=== PATIENT | male | born 1965 | race Caucasian/White ===

== ENCOUNTER 2016-07-17 01:53 | Inpatient (IN) | payer OTHER ==
[~2016-07-17] VITALS: Ht 182.9 cm; Wt 99.7 kg
[2016-07-17] VITALS (17 sets, daily range): BP systolic 100–120; BP diastolic 49–82; PULSE 94–101; RESP 14–17; TEMP 98.1–99.3; O2SAT 94–100
[2016-07-17] MEDS ORDERED: IOHEXOL 350 MG/ML 10 ML VIAL (for RAD DIAG) IV ONE (02:09)
[2016-07-17 02:17] LABS: I-STAT POTASSIUM 5.1 MMOL/L (3.5-4.9)
[2016-07-17 02:19] LABS: AUTOMATED NEUTROPHIL # 3.7 TH/MM3 (1.8-7.7); BASOPHIL % 0.6 % (0.0-2.0); EOSINOPHIL # 0.2 TH/MM3 (0-0.4); EOSINOPHIL % 2.8 % (0.0-4.0); HEMO FLAGS DIFF FINAL; LYMPH % 46.2 % (9.0-44.0); LYMPHOCYTE # 3.6 TH/MM3 (1.0-4.8); MEAN CELL VOLUME 93.6 FL (80.0-100.0); MEAN CORPUSCULAR HEMOGLOBIN 31.5 PG (27.0-34.0); MEAN CORPUSCULAR HGB CONC 33.7 % (32.0-36.0); MONO % 3.1 % (0.0-8.0); NEUT % 47.3 % (16.0-70.0); PLATELET COUNT 336 TH/MM3 (150-450); RED BLOOD COUNT 3.74 MIL/MM3 (4.50-5.90); RED CELL DISTRIBUTION WIDTH 14.7 % (11.6-17.2); WHITE BLOOD COUNT 7.8 TH/MM3 (4.0-11.0)
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
[2016-07-17 02:34] LABS: APTT (PATIENT) 19.9 SEC (24.3-30.1); PROTHROMBIN TIME - PATIENT 10.8 SEC (9.8-11.6)
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
[2016-07-17] MEDS ORDERED: DIPHTH/TETANUS/ACEL PERTUSSIS (BOOSTER) 0.5 ML VIAL/PFS IM ONE (02:44)
[2016-07-17] MEDS ORDERED: ceFAZolin 2 GM PREMIX 50 ML IV STA (02:44)
[2016-07-17] MEDS ORDERED: SODIUM CHLOR 0.9% 1000 ML INJ 1,000 ML IV ONE (02:45)
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
[2016-07-17 03:35] LABS: BLOOD GAS BASE EXCESS -8.7 mmol/L (-2-2); BLOOD GAS CARBOXYHEMOGLOBIN 2.7 % (0-4); BLOOD GAS HCO3 18 mmol/L (22-26); BLOOD GAS METHEMOGLOBIN 1.3 % (0-2); BLOOD GAS O2 HGB SATURATION 96 % (90-100); BLOOD GAS OXYGEN CONTENT 16.2 Vol % (12.0-20.0); BLOOD GAS PCO2 46 mmHg (38-42); BLOOD GAS PO2 316 mmHg (61-120); BLOOD GAS TOTAL HGB 11.5 G/DL (12.0-16.0); CRITICAL VALUE YES; DRAW SITE ART LINE; FIO2 95 %; OXYGEN DEVICE OR ABG; STAT YES; TEMP CORR TO 98.6
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
[2016-07-17] MEDS: SODIUM CHLOR 0.9% 1000 ML INJ 1,000 ML IV SCH ×2 (04:16→15:42)
[2016-07-17] MEDS ORDERED: ONDANSETRON HCL 4 MG/2 ML VIAL IV PRN (04:30)
[2016-07-17] MEDS ORDERED: SODIUM CHLORIDE 0.9% FLUSH 5 ML FLUSH IVF PRN (04:30)
[2016-07-17] MEDS ORDERED: NALOXONE HCL 0.4 MG/ML AMP IV PRN (04:30)
[2016-07-17] MEDS ORDERED: fentaNYL CITRATE 250 MCG/5 ML AMP ONE (04:32)
[2016-07-17] MEDS: metroNIDAZOLE 500 MG INJ 100 ML IV SCH ×3 (05:00→21:20)
[2016-07-17] MEDS: fentaNYL DRIP 250 ML IV SCH ×3 (05:08→23:41)
[2016-07-17] MEDS: PROPOFOL 1000 MG/100 ML INJ 100 ML IV SCH ×7 (05:08→21:19)
[2016-07-17 05:19] LABS: BLOOD GAS BASE EXCESS -3.5 mmol/L (-2-2); BLOOD GAS CARBOXYHEMOGLOBIN 2.1 % (0-4); BLOOD GAS HCO3 22 mmol/L (22-26); BLOOD GAS METHEMOGLOBIN 1.1 % (0-2); BLOOD GAS O2 HGB SATURATION 93 % (90-100); BLOOD GAS OXYGEN CONTENT 15.4 Vol % (12.0-20.0); BLOOD GAS PCO2 50 mmHg (38-42); BLOOD GAS PO2 92 mmHg (61-120); BLOOD GAS TOTAL HGB 11.7 G/DL (12.0-16.0); TEMP CORR TO 98.6
[2016-07-17 05:22] LABS: DRAW SITE ART LINE; FIO2 60 %; OXYGEN DEVICE VENTILATOR; STAT NO; ULNAR PULSE PRESENT; VENT SETTINGS VAC12/500/60/PEEP5
[2016-07-17 05:25] LABS: CRITICAL VALUE YES
[2016-07-17 06:20] LABS: BACTERIA, URINE RARE /hpf; BLOOD, URINE MOD (NEG); COMMENT (UR) CATH-CULTURE IND; CULTURE IF INDICATED CATH CULTURE IND; GLUCOSE,URINE NEG (NEG); HYALINE CAST, URINE 2 /lpf (RARE); KETONE, URINE NEG (NEG); MUCUS URINE FEW /lpf (OCC); NITRITE,URINE NEG (NEG); PH, URINE 5.5 (5.0-8.5); URINE COLOR LIGHT-YELLOW (YELLW/STRAW)
[2016-07-17 06:26] LABS: AMPHETAMINE, URINE NEG (NEG); BARBITURATES, URINE NEG (NEG); COCAINE, URINE NEG (NEG)
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
[2016-07-17 09:17] LABS: HEMATOCRIT 32.9 % (39.0-51.0); MEAN CELL VOLUME 91.1 FL (80.0-100.0); MEAN CORPUSCULAR HEMOGLOBIN 30.5 PG (27.0-34.0); MEAN CORPUSCULAR HGB CONC 33.5 % (32.0-36.0); PLATELET COUNT 181 TH/MM3 (150-450); RED BLOOD COUNT 3.61 MIL/MM3 (4.50-5.90); REVIEW FLAG FINAL; WHITE BLOOD COUNT 12.8 TH/MM3 (4.0-11.0)
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
[2016-07-17] MEDS: PANTOPRAZOLE SODIUM 40 MG VIAL IV SCH (09:46)
[2016-07-17] MEDS: DOCUSATE SODIUM 50 MG/SENNA 8.6 MG TAB PO SCH ×2 (09:46→21:19)
[2016-07-17] MEDS: SODIUM CHLORIDE 0.9% FLUSH 5 ML FLUSH IVF SCH ×2 (09:47→21:20)
[2016-07-17 09:48] LABS: POTASSIUM 3.9 MEQ/L (3.5-5.1)
[2016-07-17 10:12] LABS: CALCIUM-PROTEIN CORRECTED 7.7 MG/DL (8.5-10.1)
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
[2016-07-17] MEDS ORDERED: PROPOFOL 200 MG/20 ML AMP IV ONE (14:47)
[2016-07-17] MEDS ORDERED: NORMOSOL R INJ 1,000 ML IV ONE (14:47)
[2016-07-17] MEDS ORDERED: LACTATED RINGER'S 1000 ML INJ 1,000 ML IV ONE (14:47)
[2016-07-17] MEDS ORDERED: ONDANSETRON HCL 4 MG/2 ML VIAL IV PUSH ONE (14:47)
[2016-07-17 14:48] LABS: MEAN CELL VOLUME 91.4 FL (80.0-100.0); MEAN CORPUSCULAR HEMOGLOBIN 30.6 PG (27.0-34.0); MEAN CORPUSCULAR HGB CONC 33.5 % (32.0-36.0); PLATELET COUNT 161 TH/MM3 (150-450); RED BLOOD COUNT 3.51 MIL/MM3 (4.50-5.90); RED CELL DISTRIBUTION WIDTH 15.4 % (11.6-17.2); REVIEW FLAG FINAL; WHITE BLOOD COUNT 11.2 TH/MM3 (4.0-11.0)
[2016-07-17 15:27] LABS: BICARBONATE 30.7 MEQ/L (21.0-32.0); CALCIUM-PROTEIN CORRECTED 7.9 MG/DL (8.5-10.1); POTASSIUM 4.3 MEQ/L (3.5-5.1); TOTAL BILIRUBIN ADULT 0.4 MG/DL (0.2-1.0)
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
[2016-07-17] MEDS: MAGNESIUM HYDROXIDE SUSP 30 ML CUP PO SCH (21:19)
[2016-07-17] MEDS: BACITRACIN TOP OINT 15 GM TUBE TOP SCH (21:20)
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
[2016-07-18] VITALS (16 sets, daily range): BP systolic 99–124; BP diastolic 50–60; PULSE 88–103; RESP 14; TEMP 98.3–99.7; O2SAT 92–100
[2016-07-18] MEDS: SODIUM CHLOR 0.9% 1000 ML INJ 1,000 ML IV SCH ×3 (00:16→13:58)
[2016-07-18] MEDS: PROPOFOL 1000 MG/100 ML INJ 100 ML IV SCH ×5 (01:12→22:13)
[2016-07-18] MEDS: fentaNYL DRIP 250 ML IV SCH ×2 (03:59→19:04)
[2016-07-18 04:00] LABS: AUTOMATED NEUTROPHIL # 9.5 TH/MM3 (1.8-7.7); BASOPHIL % 0.2 % (0.0-2.0); EOSINOPHIL # 0.1 TH/MM3 (0-0.4); EOSINOPHIL % 1.1 % (0.0-4.0); HEMATOCRIT 29.8 % (39.0-51.0); HEMO FLAGS DIFF FINAL; LYMPH % 8.2 % (9.0-44.0); MEAN CELL VOLUME 91.6 FL (80.0-100.0); MEAN CORPUSCULAR HEMOGLOBIN 31.2 PG (27.0-34.0); MONO % 10.7 % (0.0-8.0); NEUT % 79.8 % (16.0-70.0); PLATELET COUNT 140 TH/MM3 (150-450); RED BLOOD COUNT 3.25 MIL/MM3 (4.50-5.90); RED CELL DISTRIBUTION WIDTH 15.3 % (11.6-17.2); WHITE BLOOD COUNT 11.9 TH/MM3 (4.0-11.0)
[2016-07-18 04:20] LABS: BICARBONATE 31.7 MEQ/L (21.0-32.0); CALCIUM-PROTEIN CORRECTED 8.1 MG/DL (8.5-10.1); POTASSIUM 4.7 MEQ/L (3.5-5.1); TOTAL BILIRUBIN ADULT 0.3 MG/DL (0.2-1.0)
--- NOTE | 2016-07-18 05:02 | RADRPT ---
EXAM DATE/TIME: 07/18/2016 03:22 [facility] COMPARISON: CHEST SINGLE AP, July 17, 2016, 1:50. INDICATIONS : Shortness of breath. MEDICAL HISTORY : Non-responsive. SURGICAL HISTORY : Non-responsive. ENCOUNTER: Initial ACUITY: 2 days PAIN SCORE: Non-responsive. LOCATION: Bilateral chest FINDINGS: Single AP view of the chest. Endotracheal tube is in place with the tip 5 cm above the idania. Nasoga stric tube is in place with the tip in the stomach and the side-port in the gastroesophageal junction . Atelectasis versus consolidation at the medial left lung base. No evidence of pleural effusion or p neumothorax. CONCLUSION: Endotracheal tube and nasogastric tube in place. Consolidation versus atelectasis of the medial left lung base. Chano Basilio MD on July 18, 2016 at 4:59 Board Certified Radiologist. This report was verified electronically.
[2016-07-18] MEDS: BACITRACIN TOP OINT 15 GM TUBE TOP SCH ×3 (09:00→21:00)
[2016-07-18] MEDS: SODIUM CHLORIDE 0.9% FLUSH 5 ML FLUSH IVF SCH ×2 (09:00→21:00)
[2016-07-18] MEDS: DOCUSATE SODIUM 50 MG/SENNA 8.6 MG TAB PO SCH ×2 (09:04→21:00)
[2016-07-18] MEDS: PANTOPRAZOLE SODIUM 40 MG VIAL IV SCH (09:05)
[2016-07-18] MEDS ORDERED: VASOPRESSIN INJ 20 UNITS/ML VIAL SQ SCH (10:00)
[2016-07-18] MEDS ORDERED: SODIUM CHLOR 0.45% 1000 ML INJ 1,000 ML IV SCH (10:00)
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
[2016-07-18] MEDS ORDERED: BACITRACIN OINT 0.9 GM PKT TOP ONE (13:30)
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
--- NOTE | 2016-07-18 19:53 | RADRPT ---
EXAM DATE/TIME: 07/18/2016 19:19 [facility] COMPARISON: ELBOW RIGHT LIMITED (AP & LAT), July 17, 2016, 17:56. INDICATIONS : Previous dislocation and fracture. RADIATION DOSE: 56.67 CTDIvol (mGy) MEDICAL HISTORY : Non-responsive. SURGICAL HISTORY : Non-responsive. ENCOUNTER: Subsequent ACUITY: 2 days PAIN SCALE: Non-responsive LOCATION: Right elbow TECHNIQUE: Volumetric scanning of the elbow was performed. Using automated exposure control and adjustment of t he mA and/or kV according to patient size, radiation dose was kept as low as reasonably achievable to obtain optimal diagnostic quality images. FINDINGS: BONES: There is a small linear ossific fragment, age-indeterminate adjacent to the lateral epicondyles of th e distal humerus. The radial head and ulna are without displaced. There are 3 tiny ossific be seen on axial image 51 medial to the proximal ulna of uncertain chronicity. There remains widening of the ra dial capitellar articulation. JOINTS: No significant effusion. SOFT TISSUES: Muscles, tendons and neurovascular structures are grossly unremarkable. No evidence of mass, organize d fluid collection, or foreign body. CONCLUSION: Mild widening of the elbow joint at the level of the radius and capitellar articulation with a linear ossific fragment adjacent to the lateral epicondyle and 3 tiny punctate calcifications adjacent to t he proximal ulna which are age indeterminate. Sanjay Headley MD on July 18, 2016 at 19:48 Board Certified Radiologist. This report was verified electronically.
[2016-07-18] MEDS: CHLORHEXIDINE 0.12% (ORAL KIT) 15 ML CUP MT SCH (20:00)
--- NOTE | 2016-07-18 20:49 | PD.ORT.PN ---
Subjective Subjective Remarks intubated and sedated Objective Vitals Vital Signs Date Time Temp Pulse Resp B/P Pulse Ox O2 Delivery O2 Flow Rate FiO2 07/18/16 17:37 99 40 07/18/16 16:00 98.6 88 14 114/57 100 07/18/16 16:00 50 07/18/16 12:00 50 07/18/16 12:00 98.6 92 14 123/58 98 07/18/16 11:38 98 40 07/18/16 08:19 97 40 07/18/16 08:00 98.4 96 14 114/60 97 07/18/16 08:00 50 07/18/16 06:00 99 07/18/16 04:11 97 40 07/18/16 04:00 101 07/18/16 04:00 99.7 102 14 102/50 96 07/18/16 04:00 50 07/18/16 02:00 101 07/18/16 01:33 96 40 07/18/16 00:00 102 07/18/16 00:00 99.7 103 14 99/50 97 07/18/16 00:00 50 07/17/16 22:00 100 07/17/16 20:58 97 40 I/O 07/17/16 07/17/16 07/17/16 07/18/16 07/18/16 07/18/16 07:00 15:00 23:00 07:00 15:00 23:00 Intake Total 1273 ml 1643 ml 1056 ml 865 ml Output Total 1978 ml 880 ml 420 ml 570 ml Balance -705 ml 763 ml 636 ml 295 ml Intake IV Total 1233 ml 1643 ml 1056 ml 865 ml Other 40 ml Output Urine Total 625 ml 725 ml 400 ml 550 ml Gastric Drainage Total 1253 ml 100 ml Drainage Total 100 ml 55 ml 20 ml 20 ml # Bowel Movements 0 Result Diagram: 07/18/16 0330 07/18/16 0330 Imaging Last 24 hours Impressions Chest X-Ray 07/18/16 0600 Signed Impressions: Service Date/Time: Monday, July 18, 2016 03:22 - CONCLUSION: Endotracheal tube and nasogastric tube in place. Consolidation versus atelectasis of the medial left lung base. Chano Basilio MD Objective Remarks RLE: AKA stump dressing with ss drainage. good cap refill RUE: in sling. Good elbow ROM, flex/ext, supipronation, good cap refill, 2+ radial pulses. hand lacerations. Assessment & Plan Assessment and Plan s/p right AKA intubated in ICU Weightbearing status: NWB RUE. RLE CT right elbow reveal elbow reduced, no intra-articular fragments. Has good ROM. maintain in sling. patient in restraints. OR likely tomorrow for right hip short IMN f/u hand xray secondary survey when patient awakes Jeb Gorman Jr., MD Jul 18, 2016 20:49
[2016-07-18] MEDS: MAGNESIUM HYDROXIDE SUSP 30 ML CUP PO SCH (22:11)
--- NOTE | 2016-07-18 22:37 | RADRPT ---
EXAM DATE/TIME: 07/18/2016 22:01 [facility] COMPARISON: HAND RIGHT LIMITED (2VWS), July 17, 2016, 1:50. INDICATIONS : Trauma alert. Right hand pain. MEDICAL HISTORY : None. SURGICAL HISTORY : None. ENCOUNTER: Subsequent ACUITY: 3 days PAIN SCORE: Non-responsive. LOCATION: Right Hand FINDINGS: There is a displaced comminuted fracture of the base of the first distal phalanx. This involves the a rticular surface and on the lateral view a bone fragment proximally appears to extend through the jimy ar skin surface. CONCLUSION: Comminuted first distal phalanx fracture, open fracture injury. Sanjay Headley MD on July 18, 2016 at 22:35 Board Certified Radiologist. This report was verified electronically.
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
[2016-07-19] VITALS (18 sets, daily range): BP systolic 104–163; BP diastolic 51–80; PULSE 96–125; RESP 14–24; TEMP 97.6–100.3; O2SAT 92–100
[2016-07-19 05:45] LABS: BLOOD GAS BASE EXCESS 5.2 mmol/L (-2-2); BLOOD GAS CARBOXYHEMOGLOBIN 1.2 % (0-4); BLOOD GAS HCO3 32 mmol/L (22-26); BLOOD GAS METHEMOGLOBIN 1.1 % (0-2); BLOOD GAS O2 HGB SATURATION 91 % (90-100); BLOOD GAS OXYGEN CONTENT 12.4 Vol % (12.0-20.0); BLOOD GAS PCO2 71 mmHg (38-42); BLOOD GAS PO2 71 mmHg (61-120); BLOOD GAS TOTAL HGB 9.6 G/DL (12.0-16.0); TEMP CORR TO 98.6
[2016-07-19 05:46] LABS: CRITICAL VALUE YES; DRAW SITE ART LINE; FIO2 40 %; OXYGEN DEVICE VENTILATOR; STAT NO; VENT SETTINGS AC/14/500/PEEP5
[2016-07-19 05:54] LABS: AUTOMATED NEUTROPHIL # 7.3 TH/MM3 (1.8-7.7); BASOPHIL % 0.2 % (0.0-2.0); EOSINOPHIL # 0.2 TH/MM3 (0-0.4); EOSINOPHIL % 2.6 % (0.0-4.0); HEMATOCRIT 26.7 % (39.0-51.0); HEMO FLAGS DIFF FINAL; LYMPH % 4.9 % (9.0-44.0); LYMPHOCYTE # 0.4 TH/MM3 (1.0-4.8); MEAN CORPUSCULAR HEMOGLOBIN 31.6 PG (27.0-34.0); NEUT % 83.3 % (16.0-70.0); PLATELET COUNT 121 TH/MM3 (150-450); RED BLOOD COUNT 2.87 MIL/MM3 (4.50-5.90); RED CELL DISTRIBUTION WIDTH 14.6 % (11.6-17.2); WHITE BLOOD COUNT 8.8 TH/MM3 (4.0-11.0)
--- NOTE | 2016-07-19 05:55 | RADRPT ---
EXAM DATE/TIME: 07/19/2016 04:45 [facility] COMPARISON: CHEST SINGLE AP, July 18, 2016, 3:22. INDICATIONS : Shortness of breath, possible pulmonary disease. MEDICAL HISTORY : None. SURGICAL HISTORY : None. ENCOUNTER: Subsequent ACUITY: 2 days PAIN SCORE: Non-responsive. LOCATION: Bilateral chest FINDINGS: Single AP view of the chest. Endotracheal tube and nasogastric tube remain in place. Patchy opacity i n the medial left lung base again seen. Lungs otherwise clear. No evidence of pleural effusion or pne umothorax. CONCLUSION: Patchy left lung base atelectasis. Chano Basilio MD on July 19, 2016 at 5:53 Board Certified Radiologist. This report was verified electronically.
[2016-07-19] MEDS: SODIUM CHLOR 0.9% 1000 ML INJ 1,000 ML IV SCH ×2 (05:58→15:40)
[2016-07-19 06:45] LABS: CALCIUM-PROTEIN CORRECTED 8.6 MG/DL (8.5-10.1); MAGNESIUM 2.4 MG/DL (1.5-2.5); POTASSIUM 4.6 MEQ/L (3.5-5.1); TOTAL BILIRUBIN ADULT 0.3 MG/DL (0.2-1.0)
[2016-07-19] MEDS: DOCUSATE SODIUM 50 MG/SENNA 8.6 MG TAB PO SCH ×2 (07:54→22:01)
[2016-07-19] MEDS: CHLORHEXIDINE 0.12% (ORAL KIT) 15 ML CUP MT SCH ×2 (07:54→20:00)
[2016-07-19] MEDS: PANTOPRAZOLE SODIUM 40 MG VIAL IV SCH (07:54)
[2016-07-19] MEDS: BACITRACIN TOP OINT 15 GM TUBE TOP SCH ×2 (07:54→21:59)
[2016-07-19] MEDS: SODIUM CHLORIDE 0.9% FLUSH 5 ML FLUSH IVF SCH ×2 (07:54→20:42)
[2016-07-19] MEDS: PROPOFOL 1000 MG/100 ML INJ 100 ML IV SCH ×3 (07:55→18:30)
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
[2016-07-19] MEDS: ENOXAPARIN SODIUM 30 MG/0.3 ML SYRINGE SQ SCH ×2 (10:56→22:00)
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
[2016-07-19] MEDS: oxyCODONE/ACETAMINOPHEN 5 MG/325 MG TAB PO SCH ×2 (13:43→18:30)
[2016-07-19] MEDS: fentaNYL DRIP 250 ML IV SCH (18:30)
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
[2016-07-19] MEDS: MAGNESIUM HYDROXIDE SUSP 30 ML CUP PO SCH (21:59)
[2016-07-20] VITALS (17 sets, daily range): BP systolic 101–147; BP diastolic 54–92; PULSE 86–100; RESP 14–17; TEMP 98.5–99.6; O2SAT 96–100
[2016-07-20] MEDS: oxyCODONE/ACETAMINOPHEN 5 MG/325 MG TAB PO SCH ×4 (01:00→19:40)
[2016-07-20] MEDS: SODIUM CHLOR 0.9% 1000 ML INJ 1,000 ML IV SCH ×2 (03:13→14:32)
[2016-07-20 05:34] LABS: AUTOMATED NEUTROPHIL # 5.8 TH/MM3 (1.8-7.7); BASOPHIL % 0.1 % (0.0-2.0); EOSINOPHIL # 0.3 TH/MM3 (0-0.4); EOSINOPHIL % 3.7 % (0.0-4.0); HEMATOCRIT 23.4 % (39.0-51.0); HEMO FLAGS DIFF FINAL; LYMPHOCYTE # 0.6 TH/MM3 (1.0-4.8); MEAN CELL VOLUME 93.1 FL (80.0-100.0); MEAN CORPUSCULAR HEMOGLOBIN 30.5 PG (27.0-34.0); MEAN CORPUSCULAR HGB CONC 32.8 % (32.0-36.0); MONO % 10.7 % (0.0-8.0); NEUT % 77.5 % (16.0-70.0); PLATELET COUNT 129 TH/MM3 (150-450); RED BLOOD COUNT 2.51 MIL/MM3 (4.50-5.90); RED CELL DISTRIBUTION WIDTH 14.2 % (11.6-17.2); WHITE BLOOD COUNT 7.4 TH/MM3 (4.0-11.0)
[2016-07-20 05:36] LABS: BLOOD GAS BASE EXCESS 7.1 mmol/L (-2-2); BLOOD GAS CARBOXYHEMOGLOBIN 1.1 % (0-4); BLOOD GAS HCO3 33 mmol/L (22-26); BLOOD GAS METHEMOGLOBIN 0.4 % (0-2); BLOOD GAS O2 HGB SATURATION 98 % (90-100); BLOOD GAS OXYGEN CONTENT 13.7 Vol % (12.0-20.0); BLOOD GAS PCO2 62 mmHg (38-42); BLOOD GAS PO2 132 mmHg (61-120); BLOOD GAS TOTAL HGB 9.8 G/DL (12.0-16.0); TEMP CORR TO 98.6
[2016-07-20 05:37] LABS: CRITICAL VALUE YES; OXYGEN DEVICE VENTILATOR
[2016-07-20 05:38] LABS: DRAW SITE ART LINE; FIO2 50 %; STAT NO; ULNAR PULSE PRESENT; VENT SETTINGS VAC/14/550/PEEP5
[2016-07-20 06:00] LABS: ALKALINE PHOSPHATASE 54 U/L (45-117); ALT (GPT) 57 U/L (12-78); ANION GAP 3 MEQ/L (5-15); AST (GOT) 61 U/L (15-37); BICARBONATE 34.7 MEQ/L (21.0-32.0); BLOOD UREA NITROGEN 24 MG/DL (7-18); CHLORIDE 111 MEQ/L (98-107); GLOMERULAR FILTRATION RATE 55 ML/MIN (>89); MAGNESIUM 2.6 MG/DL (1.5-2.5); POTASSIUM 4.4 MEQ/L (3.5-5.1); SODIUM (NA) 149 MEQ/L (136-145); TOTAL BILIRUBIN ADULT 0.4 MG/DL (0.2-1.0)
--- NOTE | 2016-07-20 06:20 | RADRPT ---
EXAM DATE/TIME: 07/20/2016 03:37 [facility] COMPARISON: CHEST SINGLE AP, July 19, 2016, 4:45. INDICATIONS : Shortness of breath. MEDICAL HISTORY : None. SURGICAL HISTORY : None. ENCOUNTER: Subsequent ACUITY: 4 - 6 days PAIN SCORE: Non-responsive. LOCATION: Bilateral chest FINDINGS: A single view of the chest demonstrates endotracheal tube in satisfactory position. NG enters stomach . Basilar airspace disease, left greater than right with small left effusion. CONCLUSION: 1. Slight increase in left basilar airspace disease since July 19. Small effusion. Endotracheal tube and nasogastric tube unchanged. Fracisco George MD on July 20, 2016 at 6:18 Board Certified Radiologist. This report was verified electronically.
[2016-07-20] MEDS: PROPOFOL 1000 MG/100 ML INJ 100 ML IV SCH ×5 (06:29→20:55)
[2016-07-20] MEDS: LACTULOSE SYRUP 20 GM/30 ML CUP PO SCH (09:00)
[2016-07-20] MEDS: DOCUSATE SODIUM 50 MG/SENNA 8.6 MG TAB PO SCH ×2 (09:00→19:40)
[2016-07-20] MEDS: CHLORHEXIDINE 0.12% (ORAL KIT) 15 ML CUP MT SCH ×2 (09:36→19:41)
[2016-07-20] MEDS: fentaNYL DRIP 250 ML IV SCH (09:36)
[2016-07-20] MEDS: SODIUM CHLORIDE 0.9% FLUSH 5 ML FLUSH IVF SCH ×2 (09:36→19:40)
[2016-07-20] MEDS: PANTOPRAZOLE SODIUM 40 MG VIAL IV SCH (09:36)
[2016-07-20] MEDS ORDERED: SODIUM CHLOR 0.9% 250 ML INJ 250 ML IV ONE (10:00)
[2016-07-20] MEDS ORDERED: FUROSEMIDE 20 MG/2 ML VIAL IV ONE (10:00)
[2016-07-20] MEDS: ENOXAPARIN SODIUM 30 MG/0.3 ML SYRINGE SQ SCH ×2 (10:00→20:55)
[2016-07-20] MEDS: BACITRACIN TOP OINT 15 GM TUBE TOP SCH ×2 (12:04→20:52)
[2016-07-20] MEDS ORDERED: BUPIVACAINE HCL PF 0.5% 30 ML VIAL ONE (12:26)
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
[2016-07-20] MEDS ORDERED: ceFAZolin 2 GM PREMIX 50 ML ONE (13:07)
[2016-07-20] MEDS ORDERED: BUPIVACAINE HCL PF 0.5% 30 ML VIAL INFIL ONE (14:05)
--- NOTE | 2016-07-20 15:29 | HHI.PR ---
Immediate Post Op Note Procedure Date: Jul 20, 2016 Pre Op Diagnosis: (1) Open fracture of distal phalanx of thumb (2) Laceration of hand with complication Post Op Diagnosis: (1) Laceration of hand with complication (2) Open fracture of distal phalanx of thumb Surgeon: Patricia Mtz MD Cell Tender Helper(s): Stacie Nash PA-C Procedure: 1. Treatment of open fracture of right thumb distal phalanx. 2. Debridement and repair of 21cm of open wounds to the right hand. Complications: n/a Specimen(s) removed: Bone fragment, outside of body, right thumb. Estimated blood loss: 10mL Anesthesia: General Drains: None Tourniquet time (min at mmHg) 61 minutes at 250mmHg Patient to: ISC Patient Condition: Good Date/Time of Procedure: SEE SURGICAL CARE RECORD Leticia Nash Jul 20, 2016 15:29
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
[2016-07-20] MEDS: MAGNESIUM HYDROXIDE SUSP 30 ML CUP PO SCH (19:40)
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
[2016-07-21] VITALS (16 sets, daily range): BP systolic 110–150; BP diastolic 60–75; PULSE 73–104; RESP 16–18; TEMP 99–100.3; O2SAT 96–100
[2016-07-21] MEDS: PROPOFOL 1000 MG/100 ML INJ 100 ML IV SCH ×2 (01:31→03:18)
[2016-07-21] MEDS: oxyCODONE/ACETAMINOPHEN 5 MG/325 MG TAB PO SCH ×4 (01:31→18:22)
[2016-07-21] MEDS: fentaNYL DRIP 250 ML IV SCH ×2 (03:17→22:04)
[2016-07-21 04:33] LABS: AUTOMATED NEUTROPHIL # 8.1 TH/MM3 (1.8-7.7); BASOPHIL % 0.5 % (0.0-2.0); EOSINOPHIL % 0.3 % (0.0-4.0); HEMATOCRIT 24.6 % (39.0-51.0); HEMO FLAGS DIFF FINAL; LYMPH % 7.7 % (9.0-44.0); LYMPHOCYTE # 0.7 TH/MM3 (1.0-4.8); MEAN CELL VOLUME 91.4 FL (80.0-100.0); MEAN CORPUSCULAR HEMOGLOBIN 30.6 PG (27.0-34.0); MEAN CORPUSCULAR HGB CONC 33.5 % (32.0-36.0); MONO % 8.1 % (0.0-8.0); NEUT % 83.4 % (16.0-70.0); PLATELET COUNT 153 TH/MM3 (150-450); RED BLOOD COUNT 2.69 MIL/MM3 (4.50-5.90); RED CELL DISTRIBUTION WIDTH 14.2 % (11.6-17.2); WHITE BLOOD COUNT 9.7 TH/MM3 (4.0-11.0)
[2016-07-21 04:52] LABS: ANION GAP 5 MEQ/L (5-15); AST (GOT) 43 U/L (15-37); BICARBONATE 32.9 MEQ/L (21.0-32.0); BLOOD UREA NITROGEN 25 MG/DL (7-18); CHLORIDE 109 MEQ/L (98-107); GLOMERULAR FILTRATION RATE 64 ML/MIN (>89); MAGNESIUM 2.4 MG/DL (1.5-2.5); POTASSIUM 4.2 MEQ/L (3.5-5.1); SODIUM (NA) 147 MEQ/L (136-145)
[2016-07-21 04:55] LABS: ALKALINE PHOSPHATASE 49 U/L (45-117); ALT (GPT) 45 U/L (12-78); TOTAL BILIRUBIN ADULT 0.5 MG/DL (0.2-1.0)
[2016-07-21 05:11] LABS: BLOOD GAS CARBOXYHEMOGLOBIN 1.6 % (0-4); BLOOD GAS HCO3 28 mmol/L (22-26); BLOOD GAS METHEMOGLOBIN 0.7 % (0-2); BLOOD GAS O2 HGB SATURATION 97 % (90-100); BLOOD GAS OXYGEN CONTENT 10.7 Vol % (12.0-20.0); BLOOD GAS PCO2 40 mmHg (38-42); BLOOD GAS PO2 125 mmHg (61-120); BLOOD GAS TOTAL HGB 7.7 G/DL (12.0-16.0); CRITICAL VALUE NO; DRAW SITE ALINE; FIO2 40 %; OXYGEN DEVICE VENTILATOR; STAT NO; TEMP CORR TO 98.6; VENT SETTINGS AC/16/500/PEEP5
--- NOTE | 2016-07-21 07:15 | RADRPT ---
EXAM DATE/TIME: 07/21/2016 03:40 [facility] COMPARISON: CHEST SINGLE AP, July 20, 2016, 3:37. INDICATIONS : Shortness of breath, MEDICAL HISTORY : None. SURGICAL HISTORY : None. ENCOUNTER: Subsequent ACUITY: 4 - 6 days PAIN SCORE: Non-responsive. LOCATION: Bilateral chest FINDINGS: Endotracheal tube tip in satisfactory position. NG enters stomach. Basal airspace consolidation, left greater than right similar to July 20. CONCLUSION: 1. Stable exam since July 20 with basilar lung consolidation. Endotracheal tube and nasogastric tube unchanged. Fracisco George MD on July 21, 2016 at 7:12 Board Certified Radiologist. This report was verified electronically.
[2016-07-21] MEDS: DOCUSATE SODIUM 50 MG/SENNA 8.6 MG TAB PO SCH ×2 (08:41→21:00)
[2016-07-21] MEDS: LACTULOSE SYRUP 20 GM/30 ML CUP PO SCH (08:42)
[2016-07-21] MEDS: SODIUM CHLORIDE 0.9% FLUSH 5 ML FLUSH IVF SCH ×2 (08:42→21:00)
[2016-07-21] MEDS: PANTOPRAZOLE SODIUM 40 MG VIAL IV SCH (08:42)
--- NOTE | 2016-07-21 08:53 | PD.ORT.PN ---
Subjective Subjective Remarks Patient intubated. Evaluated with the nurse at the bedside. Bilateral upper extremity restraints. Bandage on right hand from recent thumb surgery Objective Vitals Vital Signs Date Time Temp Pulse Resp B/P Pulse Ox O2 Delivery O2 Flow Rate FiO2 07/21/16 08:13 100 40 07/21/16 08:00 40 07/21/16 07:25 16 07/21/16 04:45 100 40 07/21/16 04:00 40 07/21/16 04:00 99.0 76 16 119/64 99 117/74 07/21/16 01:11 99 40 07/21/16 00:00 40 07/21/16 00:00 99.1 83 17 132/75 99 07/20/16 21:45 98 40 07/20/16 20:00 98.5 98 16 147/92 98 07/20/16 20:00 40 07/20/16 18:00 92 07/20/16 16:59 97 40 07/20/16 16:00 98.7 86 16 107/68 96 07/20/16 16:00 50 07/20/16 16:00 86 07/20/16 13:25 100 100 07/20/16 12:00 93 07/20/16 12:00 99.3 93 17 131/71 100 07/20/16 12:00 50 07/20/16 11:09 100 40 07/20/16 10:00 94 07/20/16 09:25 60 I/O 07/20/16 07/20/16 07/20/16 07/21/16 07/21/16 07/21/16 07:00 15:00 23:00 07:00 15:00 23:00 Intake Total 1020 ml 798 ml 643 ml 1042 ml Output Total 350 ml 350 ml 600 ml 400 ml Balance 670 ml 448 ml 43 ml 642 ml Intake Oral 0 ml IV Total 1020 ml 798 ml 643 ml 728 ml Tube Feeding 0 ml 164 ml Other 0 ml 150 ml Output Urine Total 350 ml 350 ml 600 ml 400 ml Stool Total 0 ml # Bowel Movements 0 0 Result Diagram: 07/21/16 0420 07/21/16 0420 Imaging Last 24 hours Impressions Chest X-Ray 07/18/16 0600 Signed Impressions: Service Date/Time: Monday, July 18, 2016 03:22 - CONCLUSION: Endotracheal tube and nasogastric tube in place. Consolidation versus atelectasis of the medial left lung base. Chano Basilio MD Objective Remarks RLE: AKA stump dressing with mild drainage. RUE: In bilateral wrist restraints Pain in right hand is dry Moderate swelling about the elbow Assessment & Plan Ortho Post Op Day #: 4 Problem List: Assessment and Plan Multitrauma Right AKA Right elbow dislocation/subluxation Right intertrochanteric hip fracture PLAN: Will need ORIF right hip fracture [address] splint on right elbow since using wrist restraints Nonweightbearing right upper extremity, right lower extremity Will defer to medical with regard to anticoagulation Chris Hitchcock MD Jul 21, 2016 08:53
[2016-07-21] MEDS: BACITRACIN TOP OINT 15 GM TUBE TOP SCH ×2 (09:00→21:00)
[2016-07-21] MEDS: CHLORHEXIDINE 0.12% (ORAL KIT) 15 ML CUP MT SCH ×2 (09:02→20:00)
[2016-07-21] MEDS: ENOXAPARIN SODIUM 30 MG/0.3 ML SYRINGE SQ SCH ×2 (09:02→21:59)
[2016-07-21] MEDS: SODIUM CHLOR 0.9% 1000 ML INJ 1,000 ML IV SCH (09:04)
[2016-07-21] MEDS ORDERED: BUMETANIDE INJ 1 MG/4 ML VIAL IV PUSH ONE (10:00)
[2016-07-21] MEDS ORDERED: BISACODYL 10 MG SUPP RECTAL ONE ×2 (10:00)
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
[2016-07-21] MEDS ORDERED: POTASSIUM PHOSPHATE MONOBASIC 500 MG TAB PO PRN (14:30)
[2016-07-21] MEDS ORDERED: SODIUM PHOSPHATE INJ 30 MMOL in SODIUM CHLOR 0.9% 250 ML INJ 240 ML IV PRN (14:30)
[2016-07-21] MEDS ORDERED: MAGNESIUM OXIDE 400 MG TAB PO PRN (14:30)
[2016-07-21] MEDS ORDERED: POTASSIUM CHLOR 40 MEQ PREMIX 100 ML IV PRN ×2 (14:30)
[2016-07-21] MEDS ORDERED: POTASSIUM PHOSPHATE INJ 30 MMOL in SODIUM CHLOR 0.9% 250 ML INJ 250 ML IV PRN (14:30)
[2016-07-21] MEDS ORDERED: MAGNESIUM SULFATE INJ 4 GM in SODIUM CHLORIDE 0.9% INJ 92 ML IV PRN (14:30)
[2016-07-21] MEDS ORDERED: MAGNESIUM SULFATE INJ 2 GM in SODIUM CHLORIDE 0.9% INJ 96 ML IV PRN (14:30)
[2016-07-21] MEDS ORDERED: POTASSIUM CHLOR 20 MEQ PREMIX 100 ML IV PRN ×2 (14:30)
[2016-07-21] MEDS ORDERED: POTASSIUM PHOSPHATE MONOBASIC 500 MG TAB PO/TUBE PRN (14:30)
[2016-07-21] MEDS: MAGNESIUM HYDROXIDE SUSP 30 ML CUP PO SCH (21:00)
[2016-07-21] MEDS: DEXMEDETOMIDINE INJ 50 ML IV SCH (22:54)
[2016-07-22] VITALS (10 sets, daily range): BP systolic 131–154; BP diastolic 66–96; PULSE 74–97; RESP 14–25; TEMP 98.5–100.8; O2SAT 96–99
[2016-07-22] MEDS: oxyCODONE/ACETAMINOPHEN 5 MG/325 MG TAB PO SCH ×4 (01:00→19:00)
[2016-07-22] MEDS: DEXMEDETOMIDINE INJ 50 ML IV SCH ×3 (04:14→16:44)
[2016-07-22 05:01] LABS: AUTOMATED NEUTROPHIL # 8.1 TH/MM3 (1.8-7.7); BASOPHIL % 0.3 % (0.0-2.0); EOSINOPHIL # 0.1 TH/MM3 (0-0.4); EOSINOPHIL % 1.2 % (0.0-4.0); HEMATOCRIT 24.5 % (39.0-51.0); HEMO FLAGS DIFF FINAL; LYMPH % 8.7 % (9.0-44.0); LYMPHOCYTE # 0.9 TH/MM3 (1.0-4.8); MEAN CELL VOLUME 91.7 FL (80.0-100.0); MEAN CORPUSCULAR HEMOGLOBIN 30.9 PG (27.0-34.0); MEAN CORPUSCULAR HGB CONC 33.7 % (32.0-36.0); MONO % 10.4 % (0.0-8.0); NEUT % 79.4 % (16.0-70.0); PLATELET COUNT 189 TH/MM3 (150-450); RED BLOOD COUNT 2.67 MIL/MM3 (4.50-5.90); RED CELL DISTRIBUTION WIDTH 13.9 % (11.6-17.2); WHITE BLOOD COUNT 10.2 TH/MM3 (4.0-11.0)
[2016-07-22 05:26] LABS: ALT (GPT) 41 U/L (12-78); ANION GAP 8 MEQ/L (5-15); AST (GOT) 40 U/L (15-37); BLOOD UREA NITROGEN 24 MG/DL (7-18); CHLORIDE 110 MEQ/L (98-107); GLOMERULAR FILTRATION RATE 73 ML/MIN (>89); POTASSIUM 3.8 MEQ/L (3.5-5.1); SODIUM (NA) 147 MEQ/L (136-145)
[2016-07-22 05:28] LABS: ALKALINE PHOSPHATASE 99 U/L (45-117); TOTAL BILIRUBIN ADULT 0.7 MG/DL (0.2-1.0)
--- NOTE | 2016-07-22 06:12 | RADRPT ---
EXAM DATE/TIME: 07/22/2016 04:24 [facility] COMPARISON: CHEST SINGLE AP, July 21, 2016, 3:40. INDICATIONS : Shortness of breath. MEDICAL HISTORY : None. SURGICAL HISTORY : None. ENCOUNTER: Subsequent ACUITY: 4 - 6 days PAIN SCORE: Non-responsive. LOCATION: Bilateral chest FINDINGS: Compare with prior exam patient has been extubated. Left basilar consolidation persists. Minimal righ t basilar opacity as well. No pneumothorax or effusion. CONCLUSION: 1. Extubation. Persistent basilar airspace disease, left greater than right. Fracisco George MD on July 22, 2016 at 6:10 Board Certified Radiologist. This report was verified electronically.
[2016-07-22] MEDS: CHLORHEXIDINE 0.12% (ORAL KIT) 15 ML CUP MT SCH ×2 (08:00→20:00)
[2016-07-22] MEDS: DOCUSATE SODIUM 50 MG/SENNA 8.6 MG TAB PO SCH (09:00)
[2016-07-22] MEDS: PANTOPRAZOLE SODIUM 40 MG VIAL IV SCH (09:00)
[2016-07-22] MEDS: BACITRACIN TOP OINT 15 GM TUBE TOP SCH ×2 (09:00→21:00)
[2016-07-22] MEDS: LACTULOSE SYRUP 20 GM/30 ML CUP PO SCH (09:00)
[2016-07-22] MEDS: SODIUM CHLORIDE 0.9% FLUSH 5 ML FLUSH IVF SCH (09:37)
--- NOTE | 2016-07-22 09:37 | PD.ORT.PN ---
Subjective Subjective Remarks Patient extubated. Evaluated with the nurse at the bedside. Bilateral upper extremity restraints, removed Bandage on right hand from recent thumb surgery. Right arm splint Objective Vitals Vital Signs Date Time Temp Pulse Resp B/P Pulse Ox O2 Delivery O2 Flow Rate FiO2 07/22/16 06:00 80 07/22/16 04:00 90 07/22/16 04:00 99.8 96 15 133/71 96 07/22/16 02:00 92 07/22/16 00:00 97 07/22/16 00:00 98.5 97 18 142/76 97 07/21/16 22:00 95 07/21/16 21:26 96 Nasal Cannula 3.00 07/21/16 20:00 104 07/21/16 20:00 99.6 104 18 150/64 96 07/21/16 18:00 97 07/21/16 17:14 16 07/21/16 17:05 96 Nasal Cannula 4 07/21/16 16:00 40 07/21/16 16:00 96 07/21/16 16:00 99.1 96 16 133/74 97 07/21/16 14:00 93 07/21/16 12:00 40 07/21/16 12:00 84 07/21/16 12:00 100.3 95 17 137/74 97 07/21/16 11:32 98 40 07/21/16 10:30 40 07/21/16 10:00 85 I/O 07/21/16 07/21/16 07/21/16 07/22/16 07/22/16 07/22/16 07:00 15:00 23:00 07:00 15:00 23:00 Intake Total 1042 ml 726 ml 67 ml 104 ml Output Total 400 ml 1500 ml 1000 ml 800 ml Balance 642 ml -774 ml -933 ml -696 ml Intake Oral 0 ml IV Total 728 ml 220 ml 67 ml 104 ml Tube Feeding 164 ml 249 ml Other 150 ml 257 ml Output Urine Total 400 ml 1500 ml 1000 ml 800 ml # Bowel Movements 0 0 0 Result Diagram: 07/22/1641907/22/16 042 Imaging Last 24 hours Impressions Chest X-Ray 07/18/16 0600 Signed Impressions: Service Date/Time: Monday, July 18, 2016 03:22 - CONCLUSION: Endotracheal tube and nasogastric tube in place. Consolidation versus atelectasis of the medial left lung base. Chano Basilio MD Objective Remarks RLE: AKA stump dressing with no drainage. RUE: Dressing in right hand is dry Splint right arm intact Assessment & Plan Assessment and Plan Multitrauma Right AKA Right elbow dislocation/subluxation Right intertrochanteric hip fracture PLAN: Will need ORIF right hip fracture today Continue splint right elbow for now Nonweightbearing right upper extremity, right lower extremity Patient on Lovenox and we'll hold medication today. Nothing by mouth Dr. Gorman considering surgery today if time available in the operating room Chris Hitchcock MD Jul 22, 2016 09:36
[2016-07-22] MEDS: SODIUM CHLOR 0.9% 1000 ML INJ 1,000 ML IV SCH ×2 (10:00→22:15)
[2016-07-22] MEDS: HYDROmorphone HCL PF 1 MG/ML VIAL IV PRN ×3 (11:11→16:35)
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
[2016-07-22] MEDS ORDERED: PHENYLEPH/NS 1000 MCG/10 ML SYR IV ONE (12:00)
[2016-07-22] MEDS ORDERED: PROPOFOL 200 MG/20 ML AMP IV ONE (12:00)
[2016-07-22] MEDS ORDERED: NEOSTIGMINE 3 MG/3 ML SYR IV ONE (12:00)
[2016-07-22] MEDS ORDERED: DEXMEDETOMIDINE HCL 200 MCG/2 ML VIAL IV ONE (12:00)
[2016-07-22] MEDS ORDERED: ONDANSETRON HCL 4 MG/2 ML VIAL IV PUSH ONE (12:00)
[2016-07-22] MEDS ORDERED: LACTATED RINGER'S 1000 ML INJ 1,000 ML IV ONE (12:00)
[2016-07-22] MEDS: ACETAMINOPHEN 1000 MG/100 ML VIAL IV SCH ×2 (15:42→21:30)
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
[2016-07-22] MEDS ORDERED: ceFAZolin INJ 1,000 MG VIAL ONE (18:13)
[2016-07-22] MEDS ORDERED: Vancomycin Consult Pharmacy 1 EA OTHER SCH (18:30)
[2016-07-22] MEDS ORDERED: DEXMEDETOMIDINE INJ 50 ML ONE (19:44)
[2016-07-22] MEDS ORDERED: BISACODYL 10 MG SUPP RECTAL ONE (20:00)
[2016-07-22] MEDS ORDERED: fentaNYL CITRATE 250 MCG/5 ML AMP ONE ×2 (20:04)
[2016-07-22] MEDS ORDERED: MORPHINE SULFATE 4 MG/ML INJ ONE ×2 (20:04→22:10)
[2016-07-22] MEDS ORDERED: MIDAZOLAM HCL 2 MG/2 ML VIAL ONE (20:04)
[2016-07-22] MEDS ORDERED: ACETAMINOPHEN 1000 MG/100 ML VIAL IV ONE (20:56)
[2016-07-22] MEDS: MAGNESIUM HYDROXIDE SUSP 30 ML CUP PO SCH (21:00)
--- NOTE | 2016-07-22 21:08 | PD.OP ---
cc: Jeb Gorman Jr., MD Operative Report Date of Surgery: Jul 22, 2016 Preoperative Diagnosis: #1 Right intertrochanteric femur fracture #2 right above the knee amputation Postoperative Diagnosis: Same Procedure: #1 right hip intertrochanteric uma fixation Anesthesia: Gen. Surgeon: Jeb Gorman Special Education Educational Assistant(s): Staff Resident Surgeon: Yenni Operation and Findings: The patient received intravenous Ancef. After the appropriate anesthesia was administered, and the patient was transferred to the fracture table. Because of prior above-knee amputation the patient was placed in skeletal traction using a Steinmann pin on the distal femur. The fracture was anatomically reduced under fluoroscopic imaging. The hip was prepped and draped in usual sterile fashion. We made incision just proximal to the tip of the greater trochanter. A bone hook was introduced laterally to hold the greater trochanter reduced as there was a fracture split straight through it. We dissected down through the deep fascia. We used a threaded guidewire at the tip of the greater trochanter which was placed down to the metaphyseal region on both the AP and lateral views. We reamed proximally. Using fluoroscopic analysis we templated the appropriate size for the short nail. This nail was then placed into position under fluoroscopic guidance. We made incision laterally based on the position of the associated jig. We then placed a threaded guidewire into the center, center of the femoral head. The appropriate length for the screw was measured. We drilled laterally and then step reamed the femoral neck and femoral head region. The screw was placed into position. We then tightened the proximal set screw, which was followed by releasing one turn off of the screw to allow for compression. Traction was released from the leg and then manual compression was performed. The nail was secured distally with a single screw off of the jig using fluoroscopic guidance. We took final fluoroscopic imaging which revealed that the fracture was in very good position. The hardware was in good position as well. The femoral traction pin was removed. The wounds were thoroughly irrigated and then closed with a 0 Vicryl followed by 2-0 Vicryl and acosta. The postoperative plan is to start nonweightbearing. Additionally, we will initiate postoperative antibiotics for 24 hours along with DVT prophylaxis consisting of early mobilization, SCDs, compression stockings, and Lovenox. IMPLANTS USED Synthes short trochanteric nail, size: Short nail size 10 POSTP-OP PLAN OF ACTIVITY Antibiotics: Ancef, Antiocoagulation: Lovenox Weight bearing status: NWB Dressing: Change daily, by RN starting postop day 2 Jeb Gorman Jr., MD Jul 22, 2016 21:08
[2016-07-22] MEDS ORDERED: Post-op Orders (for Pharmacy) MISC XX ONE (21:15)
[2016-07-22] MEDS ORDERED: PROMETHAZINE HCL 25 MG TAB PO PRN (21:15)
[2016-07-22] MEDS ORDERED: oxyCODONE/ACETAMINOPHEN 5 MG/325 MG TAB PO PRN (21:15)
[2016-07-22] MEDS ORDERED: SODIUM CHLORIDE 0.9% FLUSH 5 ML FLUSH IVF PRN (21:15)
[2016-07-22] MEDS ORDERED: ZOLPIDEM TARTRATE 5 MG TAB PO PRN (21:15)
--- NOTE | 2016-07-22 21:36 | RADRPT ---
EXAM DATE/TIME: 07/22/2016 19:54 [place] COMPARISON: No previous studies available for comparison. INDICATIONS : Surgical repair. MEDICAL HISTORY : None. SURGICAL HISTORY : None. ENCOUNTER: Initial ACUITY: 1 day PAIN SCORE: Non-responsive. LOCATION: Right femur. CONCLUSION: Fluoroscopic images during placement of intramedullary uma/compression screw right hip and proximal f emur fixating fracture. Dionicio Car MD on July 22, 2016 at 21:34 Board Certified Radiologist. This report was verified electronically.
[2016-07-22] MEDS ORDERED: DO NOT ADM ANY ANTICOAGULANT DRUGS XX PRN (21:45)
[2016-07-22] MEDS: PIPERACIL-TAZO 4.5 GM PREMIX 100 ML IV SCH (22:30)
[2016-07-22] MEDS: AZITHROMYCIN INJ 500 MG in SODIUM CHLOR 0.9% 250 ML INJ 250 ML IV SCH ×2 (22:30→22:45)
[2016-07-23] VITALS (11 sets, daily range): BP systolic 102–141; BP diastolic 57–68; PULSE 60–72; RESP 18–27; TEMP 96–98.7; O2SAT 91–98
[2016-07-23] MEDS: DEXMEDETOMIDINE INJ 50 ML IV SCH ×4 (00:05→05:58)
[2016-07-23] MEDS: VANCOMYCIN INJ 1,500 MG in SODIUM CHLORID 0.9% 500 ML INJ 500 ML IV SCH ×3 (00:10→20:38)
[2016-07-23] MEDS: PIPERACIL-TAZO 4.5 GM PREMIX 100 ML IV SCH ×4 (03:23→20:39)
[2016-07-23] MEDS: ACETAMINOPHEN 1000 MG/100 ML VIAL IV SCH ×4 (04:15→20:38)
[2016-07-23 05:19] LABS: HEMATOCRIT 23.5 % (39.0-51.0); MEAN CELL VOLUME 92.1 FL (80.0-100.0); MEAN CORPUSCULAR HGB CONC 33.6 % (32.0-36.0); PLATELET COUNT 207 TH/MM3 (150-450); RED BLOOD COUNT 2.55 MIL/MM3 (4.50-5.90); RED CELL DISTRIBUTION WIDTH 14.1 % (11.6-17.2); REVIEW FLAG FINAL; WHITE BLOOD COUNT 10.7 TH/MM3 (4.0-11.0)
[2016-07-23 05:38] LABS: BICARBONATE 25.2 MEQ/L (21.0-32.0)
[2016-07-23] MEDS: CHLORHEXIDINE 0.12% (ORAL KIT) 15 ML CUP MT SCH ×2 (08:00→20:00)
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
[2016-07-23] MEDS: ENOXAPARIN SODIUM 30 MG/0.3 ML SYRINGE SQ SCH ×2 (08:30→20:38)
[2016-07-23] MEDS: PANTOPRAZOLE SODIUM 40 MG VIAL IV SCH (08:30)
[2016-07-23] MEDS: INDOMETHACIN 75 MG CONTROLLED RELEASE CAP PO SCH (08:30)
[2016-07-23] MEDS: LACTULOSE SYRUP 20 GM/30 ML CUP PO SCH (08:30)
[2016-07-23] MEDS: SODIUM CHLORIDE 0.9% FLUSH 5 ML FLUSH IVF SCH ×2 (08:30→20:39)
[2016-07-23] MEDS: BISACODYL 10 MG SUPP RECTAL SCH (08:39)
[2016-07-23] MEDS: SODIUM CHLOR 0.9% 1000 ML INJ 1,000 ML IV SCH ×2 (08:42→20:40)
[2016-07-23] MEDS: BACITRACIN TOP OINT 15 GM TUBE TOP SCH ×2 (08:43→20:40)
[2016-07-23] MEDS: HYDROmorphone HCL PF 1 MG/ML VIAL IV PRN (09:47)
[2016-07-23] MEDS: QUEtiapine FUMARATE 25 MG TAB PO SCH ×3 (12:00→20:39)
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
--- NOTE | 2016-07-23 15:07 | EKG ---
Date Performed: 07/22/2016 Time Performed: 11:42:40 PTAGE: 51 years EKG: Sinus rhythm . Inferior T wave changes are nonspecific Borderline ECG NO PREVIOUS TRACING DOCTOR: Renny Calero Interpretating Date/Time 07/23/2016 15:06:08
--- NOTE | 2016-07-23 18:43 | PD.ORT.PN ---
Subjective Subjective Remarks no c/o Objective Vitals Vital Signs Date Time Temp Pulse Resp B/P Pulse Ox O2 Delivery O2 Flow Rate FiO2 07/23/16 16:00 97.1 69 19 102/57 91 07/23/16 12:00 69 07/23/16 12:00 98.1 64 20 136/68 96 07/23/16 10:00 64 07/23/16 08:32 98 Nasal Cannula 3.00 07/23/16 08:00 68 07/23/16 08:00 98.7 60 18 141/63 96 07/23/16 06:00 64 07/23/16 04:00 66 07/23/16 04:00 98.6 66 25 109/61 96 07/23/16 03:34 98 Nasal Cannula 3.00 07/23/16 02:00 72 07/23/16 00:00 65 07/23/16 00:00 98.3 65 27 117/68 97 07/22/16 23:30 99.6 69 13 114/60 97 Nasal Cannula 3 07/22/16 23:15 69 12 124/66 97 Nasal Cannula 3 07/22/16 23:00 67 15 115/59 98 Nasal Cannula 4 07/22/16 22:45 77 12 124/66 95 Nasal Cannula 4 07/22/16 22:30 69 14 119/58 95 Nasal Cannula 4 07/22/16 22:15 74 18 123/62 97 Nasal Cannula 4 07/22/16 22:00 76 17 118/55 98 Simple Mask 10 07/22/16 21:50 101.3 76 14 122/57 97 Simple Mask 10 I/O 07/22/16 07/22/16 07/22/16 07/23/16 07/23/16 07/23/16 07:00 15:00 23:00 07:00 15:00 23:00 Intake Total 104 ml 826 ml 2000 ml 1527 ml 2890 ml Output Total 800 ml 750 ml 1450 ml 750 ml 650 ml Balance -696 ml 76 ml 550 ml 777 ml 2240 ml Intake Oral 1920 ml IV Total 104 ml 826 ml 200 ml 1527 ml 970 ml Other 1800 ml Output Urine Total 800 ml 750 ml 650 ml 750 ml 650 ml Estimated Blood Loss 150 ml Other 650 ml # Bowel Movements 0 0 Result Diagram: 07/23/16 0445 07/23/16 0445 Imaging Last 24 hours Impressions Chest X-Ray 07/18/16 0600 Signed Impressions: Service Date/Time: Monday, July 18, 2016 03:22 - CONCLUSION: Endotracheal tube and nasogastric tube in place. Consolidation versus atelectasis of the medial left lung base. Chano Basilio MD Objective Remarks RLE: AKA stump dressing with no drainage. hip wound CDI. intact sensation RUE: Dressing in right hand is dry Splint right arm intact Assessment & Plan Assessment and Plan Multitrauma Right AKA Right elbow dislocation/subluxation - reduced Right intertrochanteric hip fracture- s/p IMN POD # 1 Antibiotics: Ancef, vancomycin DVT prophylaxis, Lovenox Weightbearing status: nwb Dressing change: Change daily, by RN starting postop day 2 Dispo: Stable and okay to discharge from orthopedic standpoint. Likely inpatient rehab Jeb Gorman Jr., MD Jul 23, 2016 18:43
[2016-07-23] MEDS: MAGNESIUM HYDROXIDE SUSP 30 ML CUP PO SCH (20:38)
[2016-07-24] VITALS (7 sets, daily range): BP systolic 115–139; BP diastolic 62–86; PULSE 60–83; RESP 17–20; TEMP 96.3–98.6; O2SAT 95–99
[2016-07-24] MEDS: oxyCODONE/ACETAMINOPHEN 5 MG/325 MG TAB PO PRN ×3 (00:03→14:55)
[2016-07-24] MEDS: PIPERACIL-TAZO 4.5 GM PREMIX 100 ML IV SCH ×4 (04:19→21:11)
[2016-07-24] MEDS: ACETAMINOPHEN 1000 MG/100 ML VIAL IV SCH ×2 (04:19→07:51)
[2016-07-24 05:15] LABS: HEMATOCRIT 24.8 % (39.0-51.0); MEAN CELL VOLUME 91.1 FL (80.0-100.0); MEAN CORPUSCULAR HEMOGLOBIN 30.7 PG (27.0-34.0); MEAN CORPUSCULAR HGB CONC 33.7 % (32.0-36.0); PLATELET COUNT 298 TH/MM3 (150-450); RED BLOOD COUNT 2.72 MIL/MM3 (4.50-5.90); RED CELL DISTRIBUTION WIDTH 13.8 % (11.6-17.2); REVIEW FLAG FINAL; WHITE BLOOD COUNT 14.4 TH/MM3 (4.0-11.0)
[2016-07-24 05:44] LABS: BICARBONATE 25.6 MEQ/L (21.0-32.0); MAGNESIUM 2.2 MG/DL (1.5-2.5)
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
[2016-07-24] MEDS: CHLORHEXIDINE 0.12% (ORAL KIT) 15 ML CUP MT SCH (07:50)
[2016-07-24] MEDS: PANTOPRAZOLE SODIUM 40 MG VIAL IV SCH (07:51)
[2016-07-24] MEDS: LACTULOSE SYRUP 20 GM/30 ML CUP PO SCH (07:51)
[2016-07-24] MEDS: DOCUSATE SODIUM 100 MG CAP PO SCH ×2 (07:53→21:00)
[2016-07-24] MEDS: SODIUM CHLORIDE 0.9% FLUSH 5 ML FLUSH IVF SCH ×2 (07:57→21:00)
[2016-07-24] MEDS: BACITRACIN TOP OINT 15 GM TUBE TOP SCH ×2 (07:57→22:14)
[2016-07-24] MEDS: BISACODYL 10 MG SUPP RECTAL SCH (07:57)
[2016-07-24] MEDS: QUEtiapine FUMARATE 25 MG TAB PO SCH ×2 (07:57→21:00)
[2016-07-24] MEDS ORDERED: RESP: ALBUTEROL 2.5 MG/IPRATROPIUM 0.5 MG NEB (PRN) NEB (09:00)
[2016-07-24] MEDS ORDERED: PHARMACY ORDERED LAB XX ONE (09:45)
[2016-07-24] MEDS: SODIUM CHLOR 0.9% 1000 ML INJ 1,000 ML IV SCH (09:57)
[2016-07-24] MEDS: ENOXAPARIN SODIUM 30 MG/0.3 ML SYRINGE SQ SCH ×2 (09:57→22:09)
[2016-07-24] MEDS ORDERED: RESP: ALBUTEROL 2.5 MG/IPRATROPIUM 0.5 MG NEB (SCH) NEB (10:00)
[2016-07-24] MEDS ORDERED: BISACODYL 10 MG SUPP RECTAL ONE (10:00)
[2016-07-24] MEDS: VANCOMYCIN INJ 1,500 MG in SODIUM CHLORID 0.9% 500 ML INJ 500 ML IV SCH ×2 (10:00→22:10)
[2016-07-24] MEDS ORDERED: BISACODYL EC 5 MG TABEC PO ONE (10:00)
[2016-07-24] MEDS: INDOMETHACIN 75 MG CONTROLLED RELEASE CAP PO SCH (10:02)
--- NOTE | 2016-07-24 10:37 | PD.PLAS.PN ---
Subjective Remarks This is a 51 year old male who is 4 days status post treatment of open fracture of right thumb and repair of 21cm of open wounds to right hand on 07/20/16. Objective Vital Signs Date Time Temp Pulse Resp B/P Pulse Ox O2 Delivery O2 Flow Rate FiO2 07/24/16 08:00 97.4 72 18 130/74 98 07/24/16 01:05 18 07/24/16 00:00 98.6 83 20 115/62 96 07/23/16 21:08 18 07/23/16 20:00 96.0 72 21 111/68 94 07/23/16 16:00 97.1 69 19 102/57 91 07/23/16 12:00 69 07/23/16 12:00 98.1 64 20 136/68 96 I/O 07/23/16 07/23/16 07/23/16 07/24/16 07/24/16 07/24/16 07:00 15:00 23:00 07:00 15:00 23:00 Intake Total 1527 ml 4295 ml 240 ml 1340 ml Output Total 750 ml 650 ml 300 ml 1200 ml Balance 777 ml 3645 ml -60 ml 140 ml Intake Oral 1920 ml 240 ml 360 ml IV Total 1527 ml 2375 ml 980 ml Output Urine Total 750 ml 650 ml 300 ml 1200 ml # Bowel Movements 0 0 0 Laboratory Tests Test 07/24/16 04:40 White Blood Count 14.4 Red Blood Count 2.72 Hemoglobin 8.4 Hematocrit 24.8 Mean Corpuscular Volume 91.1 Mean Corpuscular Hemoglobin 30.7 Mean Corpuscular Hemoglobin 33.7 Concent Red Cell Distribution Width 13.8 Platelet Count 298 Mean Platelet Volume 9.8 Sodium Level 143 Potassium Level 3.0 Chloride Level 108 Carbon Dioxide Level 25.6 Anion Gap 9 Blood Urea Nitrogen 21 Creatinine 1.08 Estimat Glomerular Filtration 72 Rate Random Glucose 91 Calcium Level 7.5 Magnesium Level 2.2 Result Diagram: 07/24/1643907/24/16439 Exam Findings Patient lying comfortably in bed. Elbow splint in place. Hand dressing dry and in place. Wounds are healing well. There is no erythema, cellulitis, drainage, odor, or other evidence of infection. Skin is warm and well perfused. Assessment and Plan Diagnosis: (1) Laceration of hand with complication (2) Open fracture of distal phalanx of thumb Assessment and Plan Wounds of the right hand are dressed with povidone iodine ointment and dry dressing. Thumb spica splint is applied and secured loosely with dio wrap. Dressing should be kept dry and in place. Discussed with RN. Discharge Planning Patient cleared for discharge from hand surgery standpoint. Instructions include keep dressing and splint dry and in place and follow up in office. Leticia Nash Jul 24, 2016 10:37
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
[2016-07-24] MEDS ORDERED: POTASSIUM CHLORIDE 10 MEQ CONTROLLED RELEASE TAB PO ONE (16:45)
[2016-07-24] MEDS: MAGNESIUM HYDROXIDE SUSP 30 ML CUP PO SCH (21:00)
[2016-07-24] MEDS: AZITHROMYCIN INJ 500 MG in SODIUM CHLOR 0.9% 250 ML INJ 250 ML IV SCH (21:11)
[2016-07-25] VITALS (7 sets, daily range): BP systolic 132–158; BP diastolic 66–96; PULSE 76–103; RESP 13–24; TEMP 95.7–98; O2SAT 96–100
[2016-07-25] MEDS: PIPERACIL-TAZO 4.5 GM PREMIX 100 ML IV SCH ×2 (03:13→08:37)
[2016-07-25] MEDS ORDERED: BEDSIDE COMMODE1 MI1 (07:48)
[2016-07-25] MEDS ORDERED: WHEEMIS3 (07:48)
[2016-07-25] MEDS ORDERED: WALKER WHEELS/F1 MIS (07:48)
[2016-07-25] MEDS: INDOMETHACIN 75 MG CONTROLLED RELEASE CAP PO SCH (08:39)
[2016-07-25] MEDS: SODIUM CHLORIDE 0.9% FLUSH 5 ML FLUSH IVF SCH ×2 (08:39→21:00)
[2016-07-25] MEDS: LACTULOSE SYRUP 20 GM/30 ML CUP PO SCH (08:40)
[2016-07-25] MEDS: QUEtiapine FUMARATE 25 MG TAB PO SCH ×2 (08:40→21:00)
[2016-07-25] MEDS: DOCUSATE SODIUM 100 MG CAP PO SCH ×2 (08:40→21:00)
[2016-07-25] MEDS: ENOXAPARIN SODIUM 30 MG/0.3 ML SYRINGE SQ SCH ×2 (08:42→21:38)
[2016-07-25] MEDS: BACITRACIN TOP OINT 15 GM TUBE TOP SCH ×2 (08:43→21:38)
[2016-07-25] MEDS: VANCOMYCIN INJ 1,500 MG in SODIUM CHLORID 0.9% 500 ML INJ 500 ML IV SCH (08:52)
[2016-07-25] MEDS ORDERED: POTASSIUM CHLORIDE 20 MEQ CONTROLLED RELEASE TAB PO ONE (09:00)
[2016-07-25] MEDS ORDERED: DOCU1CAP39 PO (11:26)
[2016-07-25] MEDS ORDERED: MILKSUS PO (11:26)
[2016-07-25] MEDS ORDERED: ENOX30P SQ (11:37)
[2016-07-25] MEDS ORDERED: INDO75CA3 PO (11:37)
[2016-07-25] MEDS ORDERED: QUET1TAB7 PO (11:37)
[2016-07-25] MEDS ORDERED: OXYC1TAB63 PO (11:37)
[2016-07-25] MEDS ORDERED: PROM25TA5 PO (11:37)
[2016-07-25] MEDS ORDERED: AMBI5TAB PO (11:37)
[2016-07-25] MEDS ORDERED: LACT10SO PO (11:37)
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
[2016-07-25] MEDS: oxyCODONE/ACETAMINOPHEN 5 MG/325 MG TAB PO PRN (19:54)
[2016-07-25] MEDS: MAGNESIUM HYDROXIDE SUSP 30 ML CUP PO SCH (21:00)
[2016-07-26] VITALS: BP 149/92; PULSE 70; RESP 20; TEMP 96; O2SAT 95
[2016-07-26] MEDS: oxyCODONE/ACETAMINOPHEN 5 MG/325 MG TAB PO PRN ×3 (04:46→20:55)
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
[2016-07-26 08:00] VITALS: BP 142/95; PULSE 78; RESP 19; TEMP 95.7; O2SAT 97
[2016-07-26] MEDS: LACTULOSE SYRUP 20 GM/30 ML CUP PO SCH (09:00)
[2016-07-26] MEDS: DOCUSATE SODIUM 100 MG CAP PO SCH ×2 (09:00→20:56)
[2016-07-26] MEDS: BACITRACIN TOP OINT 15 GM TUBE TOP SCH ×2 (09:00→20:56)
[2016-07-26] MEDS: QUEtiapine FUMARATE 25 MG TAB PO SCH ×2 (09:00→20:56)
[2016-07-26] MEDS: ENOXAPARIN SODIUM 30 MG/0.3 ML SYRINGE SQ SCH ×2 (09:10→20:56)
[2016-07-26] MEDS: INDOMETHACIN 75 MG CONTROLLED RELEASE CAP PO SCH (09:10)
[2016-07-26] MEDS: SODIUM CHLORIDE 0.9% FLUSH 5 ML FLUSH IVF SCH ×2 (09:10→21:00)
[2016-07-26 10:00] VITALS: O2SAT 86
[2016-07-26 12:00] VITALS: BP 159/96; PULSE 65; RESP 18; TEMP 96.4; O2SAT 96
[2016-07-26] MEDS ORDERED: OXYC1TAB63 PO (12:26)
[2016-07-26 16:00] VITALS: BP 158/97; PULSE 69; RESP 17; TEMP 97.8; O2SAT 96
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
[2016-07-26 20:00] VITALS: BP 148/89; PULSE 80; RESP 16; TEMP 96.8; O2SAT 96
[2016-07-26] MEDS: MAGNESIUM HYDROXIDE SUSP 30 ML CUP PO SCH (20:56)
[2016-07-27] VITALS: BP 118/63; PULSE 79; RESP 18; TEMP 96; O2SAT 95
[2016-07-27 08:00] VITALS: BP 145/77; PULSE 90; RESP 20; TEMP 96.5; O2SAT 97
[2016-07-27] MEDS ORDERED: PHARMACY ORDERED LAB XX ONE (09:45)
[2016-07-27] MEDS: ENOXAPARIN SODIUM 30 MG/0.3 ML SYRINGE SQ SCH (11:47)
[2016-07-27] MEDS: oxyCODONE/ACETAMINOPHEN 5 MG/325 MG TAB PO PRN (11:47)
[2016-07-27 12:00] VITALS: BP 146/88; PULSE 72; RESP 13; TEMP 97; O2SAT 97
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
== END 2016-07-27 11:56 | disposition left against medical advice (07) | DRG 956 ==
LOC: NEPI 01:53 → EDBD 02:27 → NEDA 02:27 → N03A 04:22 → N07B 07-23 15:08
PROVIDERS: ADMIT Surgery; ATTEND Surgery
PROC: 5A1945Z Respiratory Ventilation, 24-96 Consecutive Hours (ICD-10-PCS; 2016-07-17)
PROC: 30233L1 Transfusion of Nonautologous Fresh Plasma into Peripheral Vein, Percutaneous Approach (ICD-10-PCS; 2016-07-17)
PROC: 30233N1 Transfusion of Nonautologous Red Blood Cells into Peripheral Vein, Percutaneous Approach (ICD-10-PCS; 2016-07-17)
PROC: 0Y6C0Z3 Detachment at Right Upper Leg, Low, Open Approach (ICD-10-PCS; principal; 2016-07-17 02:45)
PROC: 0KQC0ZZ Repair Right Hand Muscle, Open Approach (ICD-10-PCS; 2016-07-20)
PROC: 0JDJ0ZZ Extraction of Right Hand Subcutaneous Tissue and Fascia, Open Approach (ICD-10-PCS; 2016-07-20)
PROC: 0QS604Z Reposition Right Upper Femur with Internal Fixation Device, Open Approach (ICD-10-PCS; 2016-07-22)
DX: S78.12 Partial traumatic amputation at level between hip and knee (principal); S36.113A Laceration of liver, unspecified degree, initial encounter; S72.141A Displaced intertrochanteric fracture of right femur, initial encounter for closed fracture; J96.00 Acute respiratory failure, unspecified whether with hypoxia or hypercapnia; T79.4XXA Traumatic shock, initial encounter; J44.9 Chronic obstructive pulmonary disease, unspecified; S32.119A Unspecified Zone I fracture of sacrum, initial encounter for closed fracture; S62.521B Displaced fracture of distal phalanx of right thumb, initial encounter for open fracture; D62 Acute posthemorrhagic anemia; F10.129 Alcohol abuse with intoxication, unspecified; S53.104A Unspecified dislocation of right ulnohumeral joint, initial encounter; S00.01XA Abrasion of scalp, initial encounter; S61.411A Laceration without foreign body of right hand, initial encounter; Y90.8 Blood alcohol level of 240 mg/100 ml or more; R91.8 Other nonspecific abnormal finding of lung field; V23.4XXA Motorcycle driver injured in collision with car, pick-up truck or van in traffic accident, initial encounter; Y92.410 Unspecified street and highway as the place of occurrence of the external cause
CPT/HCPCS: 36430; 70450; 70486; 71010; 71260; 72125; 72128; 72131; 72170; 73070; 73120; 73200; 73552; 74177; 76000; 80048; 80053; 80202; 80307; 81001; 82435; 82565; 82805; 82947; 83735; 84100; 84132; 84155; 84295; 84520; 85025; 85027; 85384; 85610; 85730; 86850; 86900; 86901; 86920; 87086; 87641; 88304; 88305; 88307; 88311; 93005; 94002; 94003; 94150; 94640; 94664; 94667; 94668; 94770; 96374; 96375; 99291; C1713; C9113; C9399; G0390; J0131; J0456; J0690; J1170; J1650; J1940; J2250; J2270; J2310; J2370; J2405; J2543; J2710; J3010; J3370; J7030; J7040; J7050; J7120; L0150; L3808; P9016; P9017; Q9967